=== PATIENT | female | born 1950 | race Caucasian/White ===

== ENCOUNTER → 2021-12-23 13:29 | Outpatient (BNVA) | payer MEDICARE, OTHER, SELFPAY | PROVIDERS: PCP Family Medicine; Visit Provider Specialist | DX: S42.211A Unspecified displaced fracture of surgical neck of right humerus, initial encounter for closed fracture (principal); W01.198A Fall on same level from slipping, tripping and stumbling with subsequent striking against other object, initial encounter | CPT/HCPCS: 24530; 99204 ==

== ENCOUNTER 2021-12-23 16:16 | Outpatient (CLI) | payer MEDICARE, OTHER, SELFPAY | END 2021-12-23 16:17 | disposition home or self-care (01) | LOC: SPT 16:17 | PROVIDERS: PCP Family Medicine; Visit Provider Specialist | DX: Z46.89 Encounter for fitting and adjustment of other specified devices (principal); S42.213D Unspecified displaced fracture of surgical neck of unspecified humerus, subsequent encounter for fracture with routine healing; X58.XXXD Exposure to other specified factors, subsequent encounter | CPT/HCPCS: 97760; L3670 ==

== ENCOUNTER → 2022-01-13 07:56 | Outpatient (BNVA) | payer MEDICARE, OTHER, SELFPAY | PROVIDERS: PCP Family Medicine; Visit Provider Specialist | DX: S49.91XA Unspecified injury of right shoulder and upper arm, initial encounter (principal); X58.XXXA Exposure to other specified factors, initial encounter; S52.121A Displaced fracture of head of right radius, initial encounter for closed fracture; S42.211A Unspecified displaced fracture of surgical neck of right humerus, initial encounter for closed fracture; W01.0XXA Fall on same level from slipping, tripping and stumbling without subsequent striking against object, initial encounter | CPT/HCPCS: 24650; 73030; 73080; 99213 ==

== ENCOUNTER → 2022-02-10 13:26 | Outpatient (BNVA) | payer MEDICARE, OTHER, SELFPAY | PROVIDERS: PCP Family Medicine; Visit Provider Specialist | DX: S42.211D Unspecified displaced fracture of surgical neck of right humerus, subsequent encounter for fracture with routine healing (principal); S52.124D Nondisplaced fracture of head of right radius, subsequent encounter for closed fracture with routine healing; X58.XXXD Exposure to other specified factors, subsequent encounter | CPT/HCPCS: 73030; 73070; 99024 ==

== ENCOUNTER → 2022-03-24 12:52 | Outpatient (BNVA) | payer MEDICARE, OTHER, SELFPAY | PROVIDERS: PCP Family Medicine; Visit Provider Specialist | DX: S42.211D Unspecified displaced fracture of surgical neck of right humerus, subsequent encounter for fracture with routine healing (principal); S52.124D Nondisplaced fracture of head of right radius, subsequent encounter for closed fracture with routine healing; X58.XXXD Exposure to other specified factors, subsequent encounter | CPT/HCPCS: 73030; 99213 ==

== ENCOUNTER → 2022-07-16 09:03 | Outpatient (BNVA) | payer SELFPAY | PROVIDERS: PCP Family Medicine; Visit Provider Dermatology | DX: Z13.6 Encounter for screening for cardiovascular disorders (principal) | CPT/HCPCS: 80061; 82947; 83036 ==

== ENCOUNTER 2023-01-06 11:43 | Outpatient (CLI) | payer MEDICARE, OTHER, SELFPAY ==
--- NOTE | 2023-01-06 | ECG_ITS ---
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 Interpretive Statements NAME OF STUDY: TREADMILL STRESS TEST INDICATION: Shortness of Breath, Palpitations Baseline blood pressure of 144/64 mm Hg, heart rate of 66 beats per minute and oxygen saturation of 98%. EKG showed sinus rhythm, left anterior fascicular block with normal ST-Ts. The patient exercised for 7 minutes and 37 seconds on a modified Vaibhav protocol. Patient attained a maximum heart rate of 128 beats per minute(85% of the maximum predicted heart rate) with a blood pressure at the peak exercise of 215/104 mm Hg present saturation of 90%. The EKG at the peak exercise revealed sinus tachycardia with 1/[address] depression in lead II, 3, aVF, V3 to V6. Does not meet diagnostic criteria for ischemia. Patient did not have any chest pain or any significant arrhythmis with the exercise During the recovery phase, there were no new changes. Blood pressure at the end of the recovery phase was 159/89 mm Hg with a heart rate of 76 beats per minute and oxygen saturation of 98%. CONCLUSION: 1. Normal EKG response to treadmill exercise by modified Vaibhav protocol. 2. No exercise-induced chest pain or cardiac arrhythmia. 3. Good exercise tolerance, attained a maximum of 10.2 METs. 4. Baseline hypertension with hypertensive response to exercise. Electronically Signed On 01-14-2023 10:30:55 CDT by Marylin Gonzalez M.D. [id number]
[2023-01-06 11:49] VITALS: BMI 27.8
[2023-01-06 12:53] VITALS: BP 159/89; PULSE 75
== END 2023-01-06 11:44 | disposition home or self-care (01) ==
LOC: CDL 11:44
PROVIDERS: PCP Family Medicine; Visit Provider Registered Nurse
DX: R00.2 Palpitations (principal)
CPT/HCPCS: 93017

== ENCOUNTER 2024-09-27 10:35 | Outpatient (CLI) | payer MEDICARE, OTHER, SELFPAY ==
--- NOTE | 2024-09-27 10:51 | FL_ITS ---
WS: [email or web address] Exam: FL barium swallow modifd [id number] Date/Time of Exam: 09/27/2024 11:17 AM Reason For Exam: Other dysphagia Fluoroscopy time: 3min [id number] minutes # of spot films: 0 Modified barium swallow study was performed in conjunction with the speech therapy service. The patient experienced mild penetration into the laryngeal inlet with thin liquid barium. The patient tolerated the remaining barium mixture foodstuffs consistencies without penetration or aspiration. There was esophageal dysmotility noted when the patient swallowed a barium tablet. The tablet was pro pelled into the stomach by additional swallows of pudding consistency barium. FL/FL barium swallow modifd [id number] IMPRESSION: 1. Mild penetration into the laryngeal inlet when the patient ingested thin liq uid barium. 2. Esophageal dysmotility. See above discussion. A separate report and recommendations will follow from the speech therapy servi ce..
== END 2024-09-27 10:36 | disposition home or self-care (01) ==
PROVIDERS: PCP Family Medicine; Visit Provider Nurse Practitioner Family
DX: R13.10 Dysphagia, unspecified (principal); R93.89 Abnormal findings on diagnostic imaging of other specified body structures; K22.4 Dyskinesia of esophagus
CPT/HCPCS: 74230; 92611

== ENCOUNTER 2024-10-17 08:05 | Outpatient (CLI) | payer MEDICARE, OTHER, SELFPAY ==
--- NOTE | 2024-10-17 08:15 | FL_ITS ---
WS: [email or web address] Exam: FL barium swallow [id number] Date/Time of Exam: 10/17/2024 8:37 AM Reason For Exam: ESOPHAGEAL DYSPHAGIA Fluoroscopy time: 1min [id number] minutes # of spot films: 5 Oropharyngeal phase of swallowing was normal. The esophagus is smooth in contour. No sign of esophageal stricture or mass. Mild tertiary esophageal spasm. No esophageal reflux was noted. No hiatal hernia noted. FL/FL barium swallow [id number] IMPRESSION: 1. Mild tertiary spasm of the lower esophagus. 2. No sign of esophageal mass or stricture.
== END 2024-10-17 08:06 | disposition home or self-care (01) ==
LOC: RAD 08:07
PROVIDERS: PCP Family Medicine; Visit Provider Nurse Practitioner Family
DX: R13.19 Other dysphagia (principal); K22.4 Dyskinesia of esophagus
CPT/HCPCS: 74220